=== PATIENT | male | born 1980 | race Caucasian/White ===

== ENCOUNTER → 2016-04-24 | Outpatient (CLI) | payer OTHER ==
--- NOTE | 2016-04-24 18:25 | DIAGNOSTIC IMAGING REPORT ---
CHEST 2 VIEWS ROUTINE CLINICAL HISTORY: Bronchitis. Productive cough. COMPARISON STUDY: No previous studies for comparison. FINDINGS: Lung volumes are normal. Lungs are clear. There is no evidence of pulmonary edema. Cardiac size is normal. Mediastinal contours are normal. IMPRESSION: No acute cardiopulmonary findings. Electronically signed by: Maximus Houston M.D. 04/24/2016 6:23 PM Dictated Date/Time: 04/24/2016 6:23 PM
== END | disposition home or self-care (01) ==
LOC: C.RAD 17:58
PROVIDERS: ATTEND Family Medicine
DX: J40 Bronchitis, not specified as acute or chronic (principal)